=== PATIENT | male | born 1945 | race Caucasian/White ===

== ENCOUNTER 2016-11-22 09:11 | Day surgery (SDC) | payer MEDICARE ==
[~2016-11-22 09:11] MED LIST: ACETAMINOPHEN 1,000 MG/100 ML BTL IV ONE; CLINDAMYCIN 600MG/50ML PREMIX 600 MG/50 ML BAG IVPB ONE
[2016-11-22 09:43] LABS: HEMATOCRIT 49.4 % (42.0-52.0); HEMOGLOBIN 15.8 gm/dl (14.0-18.0); MEAN CELL VOLUME 87.6 fl (81-97); MEAN PLATELET VOLUME 9.6 fl (7.4-10.4); PLATELET COUNT 305 K/uL (130-400); RED BLOOD COUNT 5.64 M/uL (4.40-5.70); RED CELL DISTRIBUTION WIDTH 16.3 % (11.5-14.5)
[2016-11-22] MEDS ORDERED: HYDROCODONE/APAP 5/325MG TABLET PO ONE (13:25)
[2016-11-22] MEDS ORDERED: BUPIVACAINE 0.25% W/EPI MPF 30ML VIAL IVP ONE (13:25)
[2016-11-22] MEDS ORDERED: FENTANYL PF 100MCG/2ML VIAL IV ONE (14:00)
[2016-11-22] MEDS ORDERED: KETOROLAC 30 MG/ML VIAL IVP ONE (14:00)
[2016-11-22] MEDS ORDERED: PROPOFOL 10 MG/ML VIAL IV ONE (14:00)
[2016-11-22] MEDS ORDERED: MIDAZOLAM HCL 2MG/2ML VIAL IV ONE (14:00)
[2016-11-22] MEDS ORDERED: LIDOCAINE 2% MDV (20MG/ML) 20ML VIAL IV ONE (14:00)
[2016-11-22] MEDS ORDERED: ROPIVACAINE HCL (NAROPIN) /PF 5MG/ML 20ML VIAL IV ONE (14:00)
[2016-11-22] MEDS ORDERED: DESFLURANE 240 ML BTL INH ONE (14:00)
[2016-11-22] MEDS ORDERED: ONDANSETRON HCL IV 4 MG/2 ML VIAL IVP ONE (14:00)
[2016-11-22] MEDS ORDERED: SEVOFLURANE 250 ML INH ONE (14:00)
--- NOTE | 2016-11-23 16:38 | Operative Note ---
DATE OF SURGERY: 11/22/2016. SURGEON: Mapnreet Garvey DO. REFERRING PHYSICIAN: Dr. Félix Palumbo. PREOPERATIVE DIAGNOSIS: Reducible right inguinal hernia. POSTOPERATIVE DIAGNOSIS: Reducible right inguinal hernia. OPERATION: Open right inguinal herniorrhaphy with mesh. Indication: Patient is a 71-year-old male who presented with pain and bulging in his right inguinal region. On exam, he clearly had a reducible inguinal hernia. We did discuss operative repair, risks, benefits alternatives. Risks include bleeding, infection, acute and chronic pain, recurrence, and he understood this fully. therefore, consent was signed and questions were answered. PROCEDURE: He was taken to the operating room and placed in the supine position. General anesthesia was administered per Department of Anesthesia. Patient had undergone a preoperative block per Department of Anesthesia, as well. At this time, oblique region was anesthetized with a total of 4 mL of 0.25% Sensorcaine with epinephrine. A 4 cm oblique incision made. This was carried down to the aponeurosis of the external oblique. A cecille was mace with a scalpel blade, and this was enlarged through the superficial inguinal ring with Metzenbaum scissors. Care was taken not to injure the underlying ilioinguinal nerve or spermatic cord. At this time, superior and inferior flaps were developed and a Uriel was placed on the spermatic cord. This was dissected free from the underlying transversalis fascia and retracted laterally with a Angelica drain. Patient was noted to have a moderate-sized direct hernia. Cremasteric fibers were taken down. He also had an indirect hernia consistent with pantaloon hernia. High ligation of the indirect sac was done. This was passed off the field. At this time, the floor was imbricated in a Bassini-type fashion. A right-sided ProGrip mesh was obtained. This was lying in the floor of the inguinal canal with excellent overlap of the pubic tubercle. The mesh was notched to accommodate the deep inguinal ring. This was sutured in place at the level of the internal oblique aponeurosis and the pubic bone. At this time, the aponeurosis was closed with the cord with 2-0 Vicryl. Michelle layer was closed with 3-0 Vicryl, and skin was closed with 4-0 Vicryl. He was taken to recovery room in satisfactory condition. FINDINGS AT TIME OF SURGERY: Right inguinal hernia consistent with pantaloon hernia. Repaired as above. CC: Dr. Félix BOSWELL
== END 2016-11-22 13:25 | disposition home or self-care (01) ==
LOC: SUR 09:11
PROVIDERS: ATTEND Surgery
DX: K40.90 Unilateral inguinal hernia, without obstruction or gangrene, not specified as recurrent (principal); I10 Essential (primary) hypertension
CPT/HCPCS: 49505; 00830; 64425; 88302; 85027; 76942; J1885; J2405; J3010; J2795

== ENCOUNTER 2018-10-12 10:41 | Inpatient (IN) | payer MEDICARE, OTHER ==
[2019-01-11] MEDS ORDERED: CLINDAMYCIN 600MG/50ML PREMIX 600 MG/50 ML BAG IVPB ONE ×2 (06:00)
[2019-01-11] MEDS ORDERED: MECLIZINE 25 MG TABLET PO ONE (06:00)
[2019-01-11] MEDS ORDERED: METOCLOPRAMIDE 10 MG TABLET PO ONE (06:00)
[2019-01-11] MEDS ORDERED: FAMOTIDINE 20MG TABLET PO ONE (06:00)
[2019-04-19] MEDS ORDERED: FAMOTIDINE 20MG TABLET PO ONE (06:00)
[2019-04-19] MEDS ORDERED: METOCLOPRAMIDE 10 MG TABLET PO ONE (06:00)
[2019-04-19] MEDS ORDERED: CLINDAMYCIN 600MG/50ML PREMIX 600 MG/50 ML BAG IVPB ONE (06:00)
[2019-04-19] MEDS ORDERED: MECLIZINE 25 MG TABLET PO ONE (06:00)
[2019-04-19] MEDS ORDERED: RINGERS SOLUTION,LACTATED 1,000 ML IV ONE ×2 (09:25→10:46)
[2019-04-19] MEDS ORDERED: NALOXONE 0.4 MG/1 ML VIAL IVP PRN (12:45)
[2019-04-19] MEDS ORDERED: METOCLOPRAMIDE HCL 10 MG/2 ML VIAL IVP PRN (12:45)
[2019-04-19] MEDS ORDERED: ONDANSETRON HCL IV 4 MG/2 ML VIAL IVP PRN (12:45)
[2019-04-19] MEDS ORDERED: OXYCODONE HCL/APAP 5MG/325MG TABLET PO PRN ×2 (12:45→20:30)
[2019-04-19] MEDS ORDERED: SENNOSIDES/DOCUSATE SODIUM UD CAPSULE PO PRN (12:45)
[2019-04-19] MEDS ORDERED: MAGNESIUM HYDROXIDE 30 ML UDC PO PRN (12:45)
[2019-04-19] MEDS ORDERED: HYDROCODONE/APAP 5/325MG TABLET PO PRN ×2 (12:45)
[2019-04-19] MEDS ORDERED: AL HYDROX/MAG HYDROX 30ML UD PO PRN (12:45)
[2019-04-19] MEDS ORDERED: DIPHENHYDRAMINE HCL 25 MG CAPSULE PO PRN (12:45)
[2019-04-19] MEDS ORDERED: ZOLPIDEM TARTRATE 5 MG TABLET PO PRN (12:45)
[2019-04-19] MEDS ORDERED: ACETAMINOPHEN 325 MG TAB PO PRN (12:45)
[2019-04-19] MEDS: OXYCODONE HCL/APAP 5MG/325MG TABLET PO PRN ×2 (12:52→19:12)
[2019-04-19] MEDS: RINGERS SOLUTION,LACTATED 1,000 ML IV SCH (12:55)
[2019-04-19] MEDS ORDERED: ROPIVACAINE HCL (NAROPIN) /PF 5MG/ML 20ML VIAL IV ONE (13:13)
[2019-04-19] MEDS ORDERED: DEXAMETHASONE 4 MG/ML 1ML VIAL IVP ONE (13:13)
[2019-04-19] MEDS ORDERED: 0.9 % SODIUM CHLORIDE 10 ML VIAL IVP ONE (13:13)
--- NOTE | 2019-04-19 14:29 | Operative Note ---
DATE OF SURGERY: 04/19/2019 SURGEON: Albert Ballard D.O. PREOPERATIVE DIAGNOSIS: Osteoarthritis of the right hip. POSTOPERATIVE DIAGNOSIS: Osteoarthritis of the right hip. OPERATION: RIGHT TOTAL HIP ARTHROPLASTY. DESCRIPTION: This 73-year-old male was taken to the Operating Room and placed in a supine position on the operating room table. After spinal anesthesia the patient was then placed in the lateral decubitus position and bolstered perpendicular to the floor and the right hip was prepped with Hibiclens and draped in the usual sterile fashion. All scrub personnel wore personal isolation suits. A lateral hip incision was made dissecting down through the skin and subcutaneous tissue. Hemostasis was obtained with the electrocautery. The tendons were split in line with the skin incision for exposure to the short rotators. The gluteus jitendra was divided and the self retaining hip retractor was placed. The short rotators were then divided posteriorly behind the greater trochanter and excellent exposure to the acetabulum was then noted. Hemostasis was obtained with the electrocautery. Steinmann pins were used as retractors, one was placed superiorly, one posterosuperiorly and one posteroinferiorly. We had made a emi on the greater trochanter and measured this to the proximal pin and then at the completion of the procedure this was again remeasured to make sure we had restored anatomic length to the femur. The hip was dislocated and neck amputated and the bone removed. We then placed a co-retractor anteriorly and the labrum was excised as well as inferior osteophytes both anteroinferiorly and posteroinferiorly. We began reaming with a a size 48 mm reamer up to a size 52 to the base of the cotyloid notch and all soft tissue was removed from the acetabulum. The wound was copiously irrigated with pulse lavage lactated Ringer's solution. We trialed a 52 liner and felt that this would be appropriate and subsequently a size 52 Trident cup was impacted into place at approximately 45 degrees of abduction and 50 to 20 degrees of inversion. The trial liner was subsequently placed. We then directed our attention to the proximal femur, box osteotome was used to cut the proximal femur and a hand held reamer was then passed down the shaft which was followed by a size 4 and subsequently a 5 reamer, the 5 broach was then counter sunk,we anticipated using calcar reamer, however, the cut on the femur appeared to be excellent and it was not necessary to ream the calcar. Subsequently, a size 6 reamer was used and a size 6 broach was impacted into place and trial reduction was accomplished off of the broach. First a zero and then a +2.5 head was applied and this gave us druze of anatomic length and excellent [id number] with flexion to 120 with no evidence of instability. Internal rotation to about 60 degrees wide abduction and external rotation with no instability. All of the trial components were then removed and the wound again copiously irrigated with lactated Ringer's solution. We placed a 10 degree hooded X3 liner 36 mm inside diameter with a 10 degree bustos in the posterior superior position and subsequently a 56 collared. The secure fit femoral component was impacted into place and the 36 mm +2.5 L-fit head was used and impacted into place. The hip was then again reduced with excellent stability of the components. The hip was found to be stable and the wound again irrigated with lactated Ringer's solution and the short rotators reattached to the posterior aspect of the greater trochanter. The piriform was also securely reattached. A drain was placed through a separate stab incision, the tensor was closed with a #2 Vicryl, the subcutaneous tissue was closed with 0 Vicryl and the skin was stapled. Sterile dressings were applied and the patient was taken to the Recovery Room in satisfactory condition. GROSS PATHOLOGY: This patient demonstrated osteoarthritis of the right hip and anteroinferior and posteroinferior osteophytes that was present on the acetabulum. Areas of patchy articular cartilage loss noted in the femoral head especially around the periphery. Final components inserted were Blenheim 5/6 collared secure fit femoral component, a size 52 mm Trident cup, a 36 mm 10 degree hooded X3 liner and a 36 mm +2.5 L-fit head was used. JOB NUMBER: [id number] MTDD
[2019-04-19] MEDS ORDERED: FLU VAC QS 2019-20 (INPT, 6MO+) 60MCG/0.5ML IM ONE (14:34)
[2019-04-19] MEDS ORDERED: PNEUM 13-VAL/PF 0.5 ML IM ONE (14:34)
[2019-04-19] MEDS ORDERED: HYDROMORPHONE HCL 2 MG/ML VIAL IVP PRN (14:52)
[2019-04-19] MEDS ORDERED: HYDROMORPHONE HCL 2 MG/ML VIAL IV PRN (15:15)
[2019-04-19] MEDS: CLINDAMYCIN 600MG/50ML PREMIX 600 MG/50 ML BAG IVPB SCH (19:13)
--- NOTE | 2019-04-19 20:03 | Rehab Evaluation ---
Patient Information - Patient Information Diagnosis: OA R hip, s/p RIKA Ordered Treatment: PT Evaluate and Treat Status: Initial Evaluation Surgery: Yes (RIKA) Date of Surgery: 04/19/19 History: Detail (Pt states that his R hip was progressively degenerating over the last several years.) Past Medical/Surgical Hx: PAST MEDICAL/SURGICAL HISTORY Past Surgical History RIH REPAIR lower spine sx;IFV device with back sx; [facility] REPAIR LEFT BICEP TENDON REPAIR C-SCOPE Rt shoulder sx; cervical fusion. PMH - Respiratory Hx Respiratory Disorders Yes Hx Asthma denies Hx Chronic Obstructive Yes: mild-no inhaler needed Pulmonary Disease (COPD) Hx of Productive Cough Yes: in AM Hx of SOB Yes: from smoking Comment: OCC MORNING CONGESTION PMH - Cardiovascular Hx Cardiovascular Disorders Yes Hx Deep Vein Thrombosis No Hx Hypertension Yes: med good control Hx Heart Murmur Yes: SINCE CHILDHOOD Exercise Tolerance Fair Comment: IFV filter in back PMH - Neuro Hx Neurological Disorders Yes Hx Dementia Yes: CT scan 8 months-dx mild onset PMH - GI Hx Gastrointestinal Disorders Yes PMH - Hx Genitourinary Disorders Yes Hx Bladder Problem problem since passing kidney stones Hx Kidney Stones Yes: last time passed one 1.5 yrs ago Hx Prostate Problems No PMH - Endocrine Hx Endocrine Disorders No PMH - Musculoskeletal Hx Musculoskeletal Disorders Yes Hx Arthritis Yes: hips & all over PMH - Psych Hx Psychiatric Problems No PMH - Hematology/Oncology Hx Hematology/Oncology Yes Disorders Hx Cancer Yes: CLL AND SLL Hx Chemotherapy No Hx Radiation Therapy No Comment: in remission past yr from [employer]. Premorbid Status: Detail (Pt was ambulating independently w/o assistive device prior to surgery. He states the left hip is somewhat arthritic and may need to be replaced as well.) Social History: Detail (Pt lives w/his in a two story house; he will not need to access the second floor immediately after surgery. There are three steps to enter the home with a single handrail. They have a walk in shower, shower bench, and grab bars, as well as elevated toilet.) Precautions: [place], Fall, Other (RIKA posterior approach) - Time With Patient Total Time Spent With Patient (Min): 30 Treatment Procedures: Detail (PT Evaluation) Subjective Information - Subjective Information Per Patient (Pt in bed upon arrival; awake, alert, cooperative for therapy.) Objective Data - Pain Pain Present: Yes Pain Intensity: 5 Pain Scale Used: Numeric (1 - 10) - Mental Status Patient Orientation: Oriented x3 - Visual Perception Appears within normal limits for therapeutic activities - ROM Not within normal limits (WNL in L hip, knee, ankle, and in R knee and ankle. WFL for mobility activities in R hip.) - Strength/Tone Not within normal limits (Grossly 2/5 to 3-/5 in R hip flexion/extension/abduction/adduction; 3/5 in R knee flexion/extension, 4/5 R ankle dorsiflexion; 4/5 in all L LE muscle groups.) - Coordination Appears within normal limits for therapeutic activities - Bed Mobility Needs Assist (Required minimal assist to move R LE across bed, to dangle at bedside.) - Transfers Needs Assist (Required minimal assist for sit/stand transfer to front wheeled walker and to return to sitting at bedside chair.) - Balance Balance Sitting: Good Balance Standing: Fair - Sensation Intact - Gait Detail (Pt ambulated from bedside out to hallway to nrsg station and back to bedside chair (about 108 feet), WBAT R LE and CGA and assist for IV pole.) Therapy Assessment - Therapy Assessment Detail (Pt exhibits mobility and gait impairments consistent with his post- surgical condition. He is a good candidate for inpatient physical therapy.) Patient Education - Patient Education Teaching Topic: Exercise/Activity, Precautions Response: Reinforcement Needed, Verbalize Understanding Teaching Method: Discussion Teaching Recipient: Patient, Family Barriers To Learning: Age Related Problem List - Problem List Physical Therapy Problem List: Detail (1. Requires assist for bed mobility. 2. Requires assist for transfers. 3. Difficulty walking. 4. Requires reminding of RIKA precautions. 5. Impaired strength in R LE.) Goals - Goals Physical Therapy Goals: 1. Pt will safely and independently complete bed mobility. 2. Pt will be independent in sit/stand transfers. 3. Pt will safely ambulate over household distances with front-wheeled walker w/supervision. 4. Pt will consistently verbalize understanding of RIKA precautions. Prognosis - Prognosis Good Plan - Plan Physical Therapy Plan: Pt will be seen 1-2x tomorrow for mobility, gait and stair training, review of home exercise program, and reinforcement of RIKA precautions.
[2019-04-19] MEDS ORDERED: NICOTINE 21 MG/24 HOUR PATCH TD SCH (20:30)
[2019-04-19] MEDS: ASPIRIN 325 MG TAB ENTERIC-COATED PO SCH (22:09)
[2019-04-20] MEDS: OXYCODONE HCL/APAP 5MG/325MG TABLET PO PRN ×2 (00:19→10:05)
[2019-04-20] MEDS: CLINDAMYCIN 600MG/50ML PREMIX 600 MG/50 ML BAG IVPB SCH ×2 (02:27→11:03)
[2019-04-20] MEDS ORDERED: LIDOCAINE UROJECT 10 ML APPL MM ONE (08:27)
[2019-04-20] MEDS ORDERED: PROPOFOL 10 MG/ML VIAL IV ONE (09:05)
[2019-04-20] MEDS ORDERED: FENTANYL PF 100MCG/2ML VIAL IV ONE (09:05)
[2019-04-20] MEDS ORDERED: EPHEDRINE SULFATE 50 MG/ML ML IV ONE (09:05)
[2019-04-20] MEDS ORDERED: GLYCOPYRROLATE 0.2 MG/ML ML IV ONE (09:05)
[2019-04-20] MEDS ORDERED: MIDAZOLAM HCL 2MG/2ML VIAL IV ONE (09:05)
[2019-04-20] MEDS ORDERED: LIDOCAINE 2% MDV (20MG/ML) 20ML VIAL IV ONE (09:05)
[2019-04-20] MEDS ORDERED: AMLODIPINE BESYLATE 5MG TAB PO SCH (10:00)
[2019-04-20] MEDS ORDERED: BENAZEPRIL 20 MG TABLET PO SCH (10:00)
--- NOTE | 2019-04-20 10:33 | Physical Therapy Tx Note ---
Physical Therapy Tx Note - Treatment Note Tolerated: Good Total Time Spent With Patient: 30 Physical Therapy Tx Note: Detail (The patient was in bed when PT arrived and stated he had to go to the bathroom. The patient was independent with supine to sit with use of trapeze. The patient ambulated to bathroom WBAT on the R LE independently with front wheeled walker. The patient ambulated 108 feet independently with front wheeled walker. The patient ambulated on 3 steps with one railing and folded walker with supervision for safety and verbal cues for proper technique. The patient completed THR HEP including : hip abduction supine, gluteal sets, hamstring sets, quad sets, ankle pumps and heel slides. The patient's daughter arrived after treatment was completed and was instructed to supervise pt. on stairs and of proper technique. The patient has met all inpt. goals and is discharged from inpt. PT. The pt. is to receive Home PT the first 2 weeks.) Physical Therapy Problem List: Detail (1. Requires assist for bed mobility. 2. Requires assist for transfers. 3. Difficulty walking. 4. Requires reminding of RIKA precautions. 5. Impaired strength in R LE.) Physical Therapy Goals: 1. Pt will safely and independently complete bed mobility. (Goal Met). 2. Pt will be independent in sit/stand transfers.(Goal Met). 3. Pt will safely ambulate over household distances with front-wheeled walker w/supervision.(Goal Met). 4. Pt will consistently verbalize understanding of RIKA precautions.(Goal Met) Physical Therapy Plan: The patient has met all inpt. PT goals and is discharged from inpt. PT.
[2019-04-20] MEDS: ASPIRIN 325 MG TAB ENTERIC-COATED PO SCH (11:03)
--- NOTE | 2019-04-20 11:24 | Rehab Evaluation ---
Patient Information - Patient Information Diagnosis: OA R hip, s/p RIKA Ordered Treatment: OT Evaluate and Treat Status: Initial Evaluation Surgery: Yes (RIKA) Date of Surgery: 04/19/19 History: Detail (Pt states that his R hip was progressively degenerating over the last several years.) Past Medical/Surgical Hx: PAST MEDICAL/SURGICAL HISTORY Past Surgical History RIH REPAIR lower spine sx;IFV device with back sx; LIH REPAIR LEFT BICEP TENDON REPAIR C-SCOPE Rt shoulder sx; cervical fusion. PMH - Respiratory Hx Respiratory Disorders Yes Hx Asthma denies Hx Chronic Obstructive Yes: mild-no inhaler needed Pulmonary Disease (COPD) Hx of Productive Cough Yes: in AM Hx of SOB Yes: from smoking Comment: OCC MORNING CONGESTION PMH - Cardiovascular Hx Cardiovascular Disorders Yes Hx Deep Vein Thrombosis No Hx Hypertension Yes: med good control Hx Heart Murmur Yes: SINCE CHILDHOOD Exercise Tolerance Fair Comment: IFV filter in back PMH - Neuro Hx Neurological Disorders Yes Hx Dementia Yes: CT scan 8 months-dx mild onset PMH - GI Hx Gastrointestinal Disorders Yes PMH - Hx Genitourinary Disorders Yes Hx Bladder Problem problem since passing kidney stones Hx Kidney Stones Yes: last time passed one 1.5 yrs ago Hx Prostate Problems No PMH - Endocrine Hx Endocrine Disorders No PMH - Musculoskeletal Hx Musculoskeletal Disorders Yes Hx Arthritis Yes: hips & all over PMH - Psych Hx Psychiatric Problems No PMH - Hematology/Oncology Hx Hematology/Oncology Yes Disorders Hx Cancer Yes: CLL AND SLL Hx Chemotherapy No Hx Radiation Therapy No Comment: in remission past yr from [employer]. Premorbid Status: Detail (Pt was completing ADLs and ambulating independently w/o assistive device prior to surgery. He states the left hip is somewhat arthritic and may need to be replaced as well.) Social History: Detail (Pt lives w/ his in a two story house; he will not need to access the second floor immediately after surgery. There are 4-5 large steps to enter the home with a single handrail. The bathroom is equipped with a walk in shower, shower bench, a hand-held shower hose, and grab bars. He reports that he does not have an elevated toilet. 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 Pt agreeable to OT eval, reports he has used the bathroom frequently this am since catheterization. Daughter reports Pt has slight dementia but will ensure he follows hip prec.) Objective Data - Pain Pain Present: Yes (4/10 R hip) - Mental Status Patient Orientation: Oriented x3 - Visual Perception Appears within normal limits for therapeutic activities - ROM Within normal limits (B UEs functional) - Strength/Tone Within normal limits (B UEs functional) - Coordination Appears within normal limits for therapeutic activities - Bed Mobility Independent (w/o use of trapeze or bed rail, supine >< EOB) - Transfers Independent (sit-stand from EOB and RTS, Pt forgetful of walker use, however steady standing w/o walker, educ. Pt and daughter on importance of walker at all times), Needs Assist - Balance Balance Sitting: Good Balance Standing: Good, Fair - Sensation Intact - Gait Detail (Fxl mobility within bedroom, requires reminders for walker use and to avoid twisting R LE inward while turning. Daughter present and reports Pt's will make sure he follows all precautions.) - ADL's/IADL's Detail (Pt dons/doffs socks, underwear, and pants with automatic die cutting machine operator and sock aide, fair to good follow thru to maintain hip precautions. Unable to don/doff tedhose indep however daughter reports Pt's will assist. Fxl mobility to/from RTS and educ. Pt on how to maintain hip prec with low surfaces, Pt demos understanding. OT educated Pt on importance of hip prec., use of walker at all times initially, sitting in shower, AE for LB dressing.) Therapy Assessment - Therapy Assessment Detail (Pt demos follow thru with techs to maintain hip prec with some reminders, daughter reports Pt's will ensure he maintains hip prec and OT wrote down instructions for per daughter request. Pt will be provided sock aide prior to DC. No further IP OT needs identified.) Patient Education - Patient Education Teaching Topic: Equipment Use, Precautions Response: Return Demonstration, Reinforcement Needed, Verbalize Understanding Teaching Method: Discussion, Demonstration Teaching Recipient: Patient Barriers To Learning: Cognitive/Verbal Problem List - Problem List Physical Therapy Problem List: Detail (1. Requires assist for bed mobility. 2. Requires assist for transfers. 3. Difficulty walking. 4. Requires reminding of RIKA precautions. 5. Impaired strength in R LE.) Occupational Therapy Problem List: Detail (No further IP OT needs identified.) Goals - Goals Physical Therapy Goals: 1. Pt will safely and independently complete bed mobility. (Goal Met). 2. Pt will be independent in sit/stand transfers.(Goal Met). 3. Pt will safely ambulate over household distances with front-wheeled walker w/supervision.(Goal Met). 4. Pt will consistently verbalize understanding of RIKA precautions.(Goal Met) Occupational Therapy Goals: No further IP OT needs/goals identified. Prognosis - Prognosis Good (Good pending compliance with hip prec.) Plan - Plan Physical Therapy Plan: The patient has met all inpt. PT goals and is discharged from inpt. PT. Occupational Therapy Plan: No further IP OT needs/goals identified. DC IP OT. Thank you for this referral.
[2019-04-20] MEDS: RINGERS SOLUTION,LACTATED 1,000 ML IV SCH (11:56)
--- NOTE | 2019-04-20 15:06 | Discharge Summary ---
DATE OF ADMISSION: 04/19/2019 DATE OF DISCHARGE: 04/20/2019 ADMITTING DIAGNOSIS: OSTEOARTHRITIS OF THE RIGHT HIP. DISCHARGE DIAGNOSIS: OSTEOARTHRITIS OF THE RIGHT HIP. OPERATIVE PROCEDURE: Elective right total hip arthroplasty. DESCRIPTION: This 73-year-old male was admitted to the hospital for elective total hip arthroplasty of the right hip. The patient tolerated the operative procedure well and cleared physical therapy on the first postoperative day. The drain was removed. DISCHARGE INSTRUCTIONS: The patient is to use his LISA hose during the day and remove them at night. He will take aspirin 325 mg daily for four weeks. He was given a prescription for Percocet 5/325 mg #40 to take one every six hours as necessary for pain. He will have home physical therapy. Routine wound care instructions were given. Should he have any problems prior to being seen he was instructed to call my office. JOB NUMBER: [id number] MTDD
== END 2019-04-20 17:20 | disposition home or self-care (01) | DRG 470 ==
LOC: MEDSURG 04-19 08:45
PROVIDERS: ADMIT Orthopaedic Surgery; ATTEND Orthopaedic Surgery
PROC: 0SR902A Replacement of Right Hip Joint with Metal on Polyethylene Synthetic Substitute, Uncemented, Open Approach (ICD-10-PCS; principal; 2019-04-19 11:00)
DX: M16.11 Unilateral primary osteoarthritis, right hip (principal); C91.10 Chronic lymphocytic leukemia of B-cell type not having achieved remission; C83.00 Small cell B-cell lymphoma, unspecified site; I10 Essential (primary) hypertension; F03.90 Unspecified dementia, unspecified severity, without behavioral disturbance, psychotic disturbance, mood disturbance, and anxiety; J44.9 Chronic obstructive pulmonary disease, unspecified; Z23 Encounter for immunization
CPT/HCPCS: 76942; 90670; 90686; 97014; C1776; J7120